=== PATIENT | female | born 1975 | race Two or more races ===

== ENCOUNTER 2018-07-23 16:43 | Emergency (ER) | payer OTHER ==
[~2018-07-23] VITALS: Ht 167.6 cm; Wt 63.5 kg
== END 2018-07-23 19:41 | disposition home or self-care (01) ==
LOC: ER 16:43
DX: M94.0 Chondrocostal junction syndrome [Tietze] (principal); R51 Headache; R10.11 Right upper quadrant pain

== ENCOUNTER 2018-09-17 12:20 | Emergency (ER) | payer OTHER ==
[~2018-09-17] VITALS: Ht 160 cm; Wt 60.3 kg
== END 2018-09-17 16:35 | disposition home or self-care (01) ==
LOC: ER 12:20
DX: R51 Headache (principal); M54.2 Cervicalgia